=== PATIENT | female | born 1960 | race African-American/Black ===

== ENCOUNTER → 2016-07-17 | Outpatient (CLI) | payer OTHER ==
[~2016-07-17] MED LIST: ALDACTONE25 MG PO; ALDACTONE50 MG PO; ALUPENT IH; ASPIRIN PO; ASPIRIN325 PO; CARDIZEM CD240 MG PO; CATAPRES0.2 MG PO; CLONIDINE; CYCLOBENZAPRINE10 MG PO; K-DUR 20 MEQ T20 MEQ PO; KAPVAY0.1 MG PO; LEVOTHROID88 MCG PO; LISINOPRIL40 MG PO; NOLVADEX10 MG PO; NORCO 5-325 TA1 EACH PO; NORFLEX100 MG PO; NORVASC10 MG PO; PERCOCET 5-3251 EACH PO; POTASSIUM20 PO; PREDNISONE 10 M10 M1 PO; SPIRONOLACTONE25 M1 GT; SYNTHROID88 MCG PO; TAMOXIFEN PO; TEKTURNA300 MG PO; TRANDATE 200 M200 M1 GT; TRANDATE 200 M200 M1 OR; TRANDATE 200 M200 MG PO; UNICOMPLEX M TA1 TA1; [UNRECOGNIZED DRUG - OTHER]; [UNRECOGNIZED DRUG - OTHER] IH; [UNRECOGNIZED DRUG - REMARK]
== END ==
LOC: MRI 09:44
DX: M48.06 Spinal stenosis, lumbar region (principal); M25.78 Osteophyte, vertebrae

== ENCOUNTER → 2016-09-25 | Outpatient (CLI) | payer OTHER ==
[~2016-09-25] VITALS: Ht 160 cm; Wt 112.0 kg
[~2016-09-25] MED LIST changes: +CLONIDINE0.1 PO; +LEVOTHYROXINE300 MCG PO; +LIPITOR 20 MG T20 M1 PO
--- NOTE | ~2016-09-25 | HPC ---
[facility] [address] [place] [address] PAIN MANAGEMENT CONSULTATION Name: LILO FUCHS [facility] #: [facility] [id number] Admission: 09/25/16 Attend Phys: Tom Patino DO Discharge: Date of : 56 Report #: [id number] THIS REPORT FOR: //name// CC: Tom Cruz DATE OF SERVICE: 09/25/2016 CHIEF COMPLAINT: Low back pain, left lower extremity pain with suspected paresthesias. HISTORY OF PRESENT ILLNESS: As you know, the patient is a 55-year-old female who has had longstanding low back pain, left lower extremity pain that began in 2010. The patient apparently has undergone 2 different lumbar fusion surgeries with Dr. Branch, the first in 2010, a repeated fusion in 2012. She indicates no injury, no trauma to her low back or lower extremities that may have led to recurrence of symptoms. She has been referred from her primary care physician to [facility] where she saw nurse practitioner, Karli Deras. At that time, it was determined that her symptoms may require surgical options, but she should seek more conservative therapy in the form of epidural injections under fluoroscopic guidance to address low back and left lower extremity paresthesias. The patient has subsequently been referred to our clinic to discuss options for treatment. The patient today indicates pain is periodic, describes the pain as burning, aching and throbbing, places current pain score at 7/10, daily average at 7/10, worst the pain has been is 10/10. The patient states that standing for any length of time or lying down exacerbates symptoms, getting up and walking, repositioning seems to improve pain. She has been referred to our service to discuss options for treatment for suspected lumbar radiculopathy. PAST MEDICAL HISTORY: 1. Hypertension. 2. Dyslipidemia. 3. Hypothyroidism. 4. Chronic low back pain. 5. Chronic kidney issues. 6. Osteoarthritis. 7. History of breast cancer. 8. Diabetes mellitus. PAST SURGICAL HISTORY: 1. Back surgery in 2010, repeated 2012. 2. Right knee replacement. 3. Knee revision. 4. Left knee replacement. [facility] [address] [place] [address] PAIN MANAGEMENT CONSULTATION Name: KATHIA MARINELLILILO A Room #: REG [facility].#: [id number] Admission: 09/25/16 Attend Phys: Tom Patino DO Discharge: Date of : 56 Report #: [id number] 5. Repeated back surgery. SOCIAL HISTORY: The patient continues to smoke half pack tobacco per day, has done so for greater than 20 years. Denies IV or illicit drug use. Admits to one alcoholic beverage per week. She has been on disability since 2009. She is not receiving workmen's compensation. She is not in litigation in regards to pain. She is not accompanied at today's visit. REVIEW OF SYSTEMS: Positive for weight gain, fatigue and weakness, wearing corrective eyewear, chronic cough, asthma, wheezing, numbness and tingling sensations, thyroid disease, diabetes mellitus type 2, all other review of systems negative per 12-point review of systems other than those listed in history of present illness. Pain impact score 33/70 indicating moderate interference of daily activities secondary to pain. ALLERGIES: SEAFOOD. CURRENT MEDICATIONS: Spironolactone 50 mg per day, lisinopril 40 mg per day, labetalol 200 mg twice a day, diltiazem 240 mg once a day, levothyroxine 300 mcg per day, clonidine 0.1 mg twice a day, potassium 20 mEq p.o. every day, atorvastatin 20 mg per day. IMAGING: MRI lumbar spine obtained on 07/17/2016 shows moderate foraminal narrowing at L2-L3 with effacement of the L2 nerve roots. Mild to moderate left lateral recess stenosis L2-L3 with endplate marginal osteophyte complex causing effacement of the L3 nerve roots. PHYSICAL EXAMINATION: VITAL SIGNS: Blood pressure 137/95, pulse is 73, respiratory rate 16, unlabored. The patient is 97% on room air, height 5 feet 3 inches tall, weight 247 pounds, BMI calculated 43.8. GENERAL: Well developed, well nourished, well hydrated, morbidly obese 55-year-old female appearing stated age. Pain is rated at 7/10 HEENT: Normocephalic, atraumatic. Pupils equal, round, reactive to light. Extraocular muscles are intact. Sclerae nonicteric without injection. The patient deemed a good historian. LUNGS: Clear, no wheeze, rhonchi or rales. CARDIOVASCULAR: Regular. No appreciable gallop or rub. ABDOMEN: Soft, obese, normal active bowel sounds. EXTREMITIES: Show no clubbing, no cyanosis, no edema. MUSCULOSKELETAL: Seated straight leg raising is negative. Supine straight leg raising positive. Fabere's test negative. Modified Gaenslen's positive for axial low back pain. Ankle clonus negative. Babinski is negative. She is intact to light touch from L1 through S2 dermatomes, though there is decreased [address] [address] PAIN MANAGEMENT CONSULTATION Name: LILO FUCHS Room #: REG [facility] Amy#: [id number] Admission: 09/25/16 Attend Phys: Tom Patino DO Discharge: Date of : 56 Report #: [id number] tactile sensation in a stocking distribution in lower extremities bilaterally. Gait is antalgic. She is not utilizing any assistive devices. Muscle bulk and tone equal and symmetrical. There is no ankle clonus, no Babinskis. ASSESSMENT: 1. Symptomatic lumbar radiculopathy. 2. Lumbosacral spondylosis with radiculopathy. 3. Foraminal stenosis of lumbar spine. 4. Chronic intractable pain. PLAN: 1. The patient has been referred to our service by her nurse practitioner, Karli Deras for evaluation for low back pain and lower extremity pain. It does appear the patient is suffering from lumbar radiculopathy and this does correlate to the findings in the MRI, which indicates changes at L2-L3 causing compression of the L2 and L3 nerve roots bilaterally. Symptoms patient is experiencing does appear to relate to L3 dermatomal distribution. We discussed with the patient the options for treatment. These options for treatment include physical therapy, stretching exercises, core strengthening and a concerted effort at weight loss. The patient, as you are aware, has a BMI of 43.8, which would indicate severe obesity. Weight loss would improve the patient's symptoms significantly would also decrease the pain she has been experiencing axial back due to facet arthropathy changes. We discussed with the patient medication management with neuropathic pain medications, specifically. This in conjunction with the nonsteroidal anti-inflammatory could be beneficial. We discussed the requested epidural injections to address lumbar radicular symptoms radiating from the L2-L3 level. We discussed spinal cord stimulator therapy and surgical options. After reviewing the risks and benefits of all proposed treatment options, the patient chose to take some time and consider these options more fully. 2. We have given the patient information about the spinal cord stimulator. This she can review on her own time. We did give the patient the name of the psychiatrist in the area that do the testing for the spinal cord stimulator if she wishes to move forward with this type of device. We have recommended in this patient's case, the Nevro stimulator. She was given information both in digital and written form to review at her own convenience. If she does choose to move forward with this device, she is to contact our clinic so that we will be able to provide referrals to the psychiatric evaluation initially. If she is proven to be an appropriate candidate from a psychological standpoint, we would then move forward with planning to trial implantation. The patient and I did discuss the possibility of undergoing the requested epidural injection. She is going to consider this option as well. At present, she is more considering surgical options, but we have provided her information on treatment options may be more conservative and may be more amenable to treatment for the short term. [address] [address] PAIN MANAGEMENT CONSULTATION Name: LILO FUCHS Room #: REG [facility] Reyes#: [id number] Admission: 09/25/16 Attend Phys: Tom Patino DO Discharge: Date of : 56 Report #: [id number] 3. No medication changes were made at today's visit. Recommend the patient continue medication therapy as previously prescribed. 4. We wish to thank nurse practitioner, Karli Deras for the referral of this patient to our clinic. We will keep you apprised of any treatment options the patient does choose to move forward with and the efficacy of those options. Again, we wish to thank you for the opportunity to see the patient in consultation. cc: Karli Deras RN By: 0801 1125 Tom Patino DO /nt
[2016-09-25 10:55] VITALS: BP 137/95
== END | disposition home or self-care (01) ==
LOC: PAIN 06:56
DX: M54.16 Radiculopathy, lumbar region (principal); M47.27 Other spondylosis with radiculopathy, lumbosacral region; M48.06 Spinal stenosis, lumbar region; G89.29 Other chronic pain; J45.909 Unspecified asthma, uncomplicated; E07.9 Disorder of thyroid, unspecified; E11.9 Type 2 diabetes mellitus without complications; F17.210 Nicotine dependence, cigarettes, uncomplicated; M19.90 Unspecified osteoarthritis, unspecified site; Z79.4 Long term (current) use of insulin; Z98.890 Other specified postprocedural states; Z85.3 Personal history of malignant neoplasm of breast

== ENCOUNTER 2016-12-29 10:00 | Emergency (ER) | payer OTHER ==
[~2016-12-29] VITALS: Ht 160 cm; Wt 108.9 kg
[2016-12-29 10:19] LABS: URINE BILIRUBIN NEGATIVE (Negative); URINE BLOOD NEGATIVE (Negative); URINE COLOR YELLOW; URINE GLUCOSE-RANDOM* NEGATIVE (Negative); URINE KETONES NEGATIVE (Negative); URINE NITRITE NEGATIVE (Negative); URINE PROTEIN (DIPSTICK) TRACE (Negative); URINE SPECIFIC GRAVITY 1.025 (1.003-1.035); URINE UROBILINOGEN 0.2 E.U./dl (0.2-1.0)
[2016-12-29 10:24] LABS: ABSOLUTE NEUTROPHILS 7.7 thou/uL (1.4-8.2); BASOPHILS 0.3 % (0.0-2.0); EOSINOPHILS 1.4 % (0.0-3.0); HEMATOCRIT 43.1 % (37.0-47.0); HEMOGLOBIN 14.6 gm/dL (12.0-15.0); MANUAL DIFF NO; MCH 31.1 pg (26.0-34.0); MCHC 33.9 g/dL (28.0-37.0); MCV 91.6 fL (80.0-100.0); MONOCYTES 7.4 % (1.0-8.0); PLATELET COUNT 202 thou/uL (150-400); POLYS 76.9 % (36.0-66.0); RBC 4.71 mil/uL (4.20-5.00); RDW 14.7 % (10.5-14.5)
[2016-12-29 10:31] LABS: CALCIUM 9.5 mg/dL (8.5-10.1); CREATININE 1.2 mg/dL (0.6-1.0); POTASSIUM 4.4 mmol/L (3.5-5.1)
[2016-12-29 10:37] LABS: ALBUMIN 3.7 g/dL (3.4-5.0); TOTAL BILIRUBIN 0.5 mg/dL (<0.1-1.0); TOTAL PROTEIN 7.8 g/dL (6.4-8.2)
[2016-12-29] MEDS ORDERED: FLAGYL500 MG PO (12:44)
[2016-12-29] MEDS ORDERED: ONDANSETRON HCL4 M2 PO (12:44)
[2016-12-29] MEDS ORDERED: CIPROFLOXACIN500 M1 PO (12:44)
[2016-12-29] MEDS ORDERED: NORCO 5-325 TA1 EACH PO (12:49)
== END 2016-12-29 12:58 | disposition home or self-care (01) ==
LOC: ER 10:00
PROVIDERS: Physician Assistant
DX: K50.00 Crohn's disease of small intestine without complications (principal); R19.7 Diarrhea, unspecified; F17.210 Nicotine dependence, cigarettes, uncomplicated; Z91.013 Allergy to seafood; Z98.890 Other specified postprocedural states

== ENCOUNTER 2018-02-27 22:31 | Emergency (ER) | payer OTHER ==
[~2018-02-27] VITALS: Ht 160 cm; Wt 107.0 kg
[~2018-02-27 22:31] MED LIST changes: +CIPROFLOXACIN500 M1 PO; +FLAGYL500 MG PO; +ONDANSETRON HCL4 M2 PO
[2018-02-27 22:51] LABS: URINE BILIRUBIN NEGATIVE (Negative); URINE BLOOD NEGATIVE (Negative); URINE CLARITY CLEAR; URINE COLOR YELLOW; URINE GLUCOSE-RANDOM* NEGATIVE (Negative); URINE KETONES NEGATIVE (Negative); URINE LEUKOCYTES-REFLEX NEGATIVE (Negative); URINE NITRITE-REFLEX NEGATIVE (Negative); URINE PROTEIN (DIPSTICK) NEGATIVE (Negative); URINE SPECIFIC GRAVITY >= 1.030 (1.005-1.035); URINE UROBILINOGEN 0.2 E.U./dl (0.2-1.0)
[2018-02-27] MEDS ORDERED: CARDIZEM CD240 MG PO (23:15)
[2018-02-27 23:38] LABS: ABSOLUTE NEUTROPHILS 3.7 thou/uL (1.4-8.2); BASOPHILS 0.7 % (0.0-2.0); EOSINOPHILS 2.3 % (0.0-3.0); HEMOGLOBIN 14.3 gm/dL (12.0-15.0); LYMPHOCYTES 37.2 % (24.0-44.0); MCH 32.2 pg (26.0-34.0); MCHC 34.1 g/dL (28.0-37.0); MCV 94.3 fL (80.0-100.0); MONOCYTES 6.9 % (1.0-8.0); PLATELET COUNT 168 thou/uL (150-400); POLYS 52.9 % (36.0-66.0); RBC 4.45 mil/uL (4.20-5.00); RDW 14.7 % (10.5-14.5); WBC 7.1 thou/uL (4.0-11.0)
[2018-02-27 23:52] LABS: CALCIUM 9.9 mg/dL (8.5-10.1); CREATININE 1.7 mg/dL (0.6-1.0); POTASSIUM 4.2 mmol/L (3.5-5.1)
[2018-02-27 23:53] LABS: ALBUMIN 3.4 g/dL (3.4-5.0); TOTAL BILIRUBIN 0.2 mg/dL (<0.1-1.0); TOTAL PROTEIN 7.6 g/dL (6.4-8.2)
[2018-02-28] MEDS ORDERED: ZOFRAN ODT4 MG PO (01:40)
[2018-02-28 01:52] VITALS: BP 131/91
== END 2018-02-28 01:54 | disposition home or self-care (01) ==
LOC: ER 22:31
PROVIDERS: Emergency Medicine
DX: R10.11 Right upper quadrant pain (principal); R11.0 Nausea; K59.00 Constipation, unspecified; G89.29 Other chronic pain; I10 Essential (primary) hypertension; F17.210 Nicotine dependence, cigarettes, uncomplicated; Z90.49 Acquired absence of other specified parts of digestive tract; Z90.710 Acquired absence of both cervix and uterus; Z85.3 Personal history of malignant neoplasm of breast; Z91.013 Allergy to seafood; Z96.653 Presence of artificial knee joint, bilateral

== ENCOUNTER 2018-04-05 15:11 | Emergency (ER) | payer OTHER ==
[~2018-04-05] VITALS: Ht 160 cm; Wt 99.8 kg
--- NOTE | ~2018-04-05 | EKG ---
[place] [address] [facility] [place] [address] ELECTROCARDIOGRAM REPORT Name: LILO FUCHS Room #: DEP [facility]#: [id number] Admission: 04/05/18 Attend Phys: Discharge: 04/05/18 Date of : 56 Report #: [id number] THIS REPORT FOR: //name// [facility] ED Test Date: 2018-04-05 Test Time: 15:19:12 Pat Name: LILO MARINELLI Department: Room: Gender: F Chief Medical Physicist: : 1960 Requested By: Russ Rodriguez Order Number: [id number] MD: Nicko Tavares Measurements Intervals [place] Rate: 66 P: 71 IA: 207 QRS: -24 QRSD: 116 T: 10 QT: 418 QTc: 438 Interpretive Statements Sinus rhythm Borderline prolonged IA interval Nonspecific T wave abnormality Compared to ECG 02/02/2014 01:16:36 T wave abnormality is less pronounced Electronically Signed On 04-06-2018 8:50:24 SIGNALMAN by Nicko Tavares [email or web address] <ELECTRONICALLY SIGNED> By: Nicko Tavares MD, [facility] 04/06/18 0850 1519 1519 Nicko Tavares MD, [facility] /EPI
[~2018-04-05 15:11] MED LIST changes: +ZOFRAN ODT4 MG PO
[2018-04-05 15:34] LABS: ABSOLUTE NEUTROPHILS 3.3 thou/uL (1.4-8.2); EOSINOPHILS 2.7 % (0.0-3.0); HEMATOCRIT 41.6 % (37.0-47.0); HEMOGLOBIN 14.2 gm/dL (12.0-15.0); MCH 32.7 pg (26.0-34.0); MCHC 34.2 g/dL (28.0-37.0); MCV 95.6 fL (80.0-100.0); MONOCYTES 8.6 % (1.0-8.0); PLATELET COUNT 193 thou/uL (150-400); POLYS 54.7 % (36.0-66.0); RBC 4.35 mil/uL (4.20-5.00); RDW 14.7 % (10.5-14.5); WBC 6.1 thou/uL (4.0-11.0)
[2018-04-05 15:51] LABS: ANION GAP 7 mmol/L (7-16); BUN 23 mg/dL (7-18); CALCIUM 9.9 mg/dL (8.5-10.1); CHLORIDE 103 mmol/L (98-107); CO2 29 mmol/L (21-32); CREATININE 1.2 mg/dL (0.6-1.0); GLUCOSE 102 mg/dL (74-106); POTASSIUM 4.7 mmol/L (3.5-5.1); SODIUM 139 mmol/L (136-145)
[2018-04-05 16:00] LABS: TROPONIN-I <0.06 ng/mL (<0.06)
[2018-04-05] MEDS ORDERED: LIPITOR10 MG PO (17:30)
[2018-04-05] MEDS ORDERED: ALDACTONE100 MG PO (17:31)
[2018-04-05] MEDS ORDERED: PEPCID20 MG PO (17:32)
[2018-04-05 18:31] VITALS: BP 120/82
== END 2018-04-05 18:34 | disposition home or self-care (01) ==
LOC: ER 15:11
PROVIDERS: Physician Assistant
DX: R07.89 Other chest pain (principal); F17.210 Nicotine dependence, cigarettes, uncomplicated; I10 Essential (primary) hypertension; I48.91 Unspecified atrial fibrillation; Z91.013 Allergy to seafood; Z96.653 Presence of artificial knee joint, bilateral; Z85.3 Personal history of malignant neoplasm of breast; Z90.10 Acquired absence of unspecified breast and nipple; Z90.49 Acquired absence of other specified parts of digestive tract; Z90.710 Acquired absence of both cervix and uterus

== ENCOUNTER → 2018-10-02 | Outpatient (CLI) | payer OTHER ==
[2018-10-02] VITALS (25 sets, daily range): BP systolic 87–149; BP diastolic 37–78
[~2018-10-02] VITALS: Ht 157.5 cm; Wt 106.6 kg
[~2018-10-02] MED LIST changes: +ALDACTONE100 MG PO; +LIPITOR10 MG PO; +METFORMIN HCL500 MG PO; +PEPCID20 MG PO
[2018-10-02 09:50] LABS: HEMATOCRIT 38.7 % (37.0-47.0); HEMOGLOBIN 12.9 gm/dL (12.0-15.0); MCH 32.7 pg (26.0-34.0); MCHC 33.4 g/dL (28.0-37.0); MCV 97.7 fL (80.0-100.0); RBC 3.96 mil/uL (4.20-5.00); RDW 14.2 % (10.5-14.5); WBC 4.9 thou/uL (4.0-11.0)
[2018-10-02 10:02] LABS: INR 1.1; PROTIME 11.6 Seconds (9.3-11.4)
--- NOTE | 2018-10-05 17:05 | PATH ---
[facility] [address] [place] [address] PATHOLOGY RPT PROCEDURE Name: KATHIA MARINELLILILO ANN Room #: REG [facility] Ale.Harini.#: [id number] ������������������ Admission: 10/02/18 ������������������ Date of : 56 Discharge: Report #: [id number] Path Case #: [id number] [facility] Accession Number: [id number] . 01 Material submitted: . lung - LEFT LOWER LOBE LUNG NODULE. Modifiers: left, lower . 01 Clinical history: . Left lower lobe lung nodule . 02 Diagnosis: Lung, left lower lobe lung nodule, needle core biopsy: - Chondroid and myxoid matrix adjacent to benign alveolated lung parenchyma. See comment. - Scant fragments of reactive skeletal muscle present. LBQ/10/05/2018 . 02 Comment: Examination shows chondroid and myxoid matrix amidst lung parenchyma. Mitotic figures, or necrosis as well as nuclear atypia are not identified. Findings may be suggestive of a pulmonary hamartoma, or a spindle cell soft tissue neoplasm with chondromyxoid matrix. Epithelial neoplasm or carcinoma is not identified within the current sample. Clinical correlation is required. . Dr. Jennifer Cunningham has seen a outside sales account representative slide of this case and concurs with my diagnosis. (IUV/db; 10/05/2018) . 02 Electronically signed: . Amrita More MD, Pathologist NPI- [id number] . 01 Gross description: . Received in formalin labeled "Lilo Fuchs, LL lobe," and additionally labeled on the requisition as "lung nodule," are multiple fragments of needle cores of horne soft tissue measuring 0.3 x 0.2 x 0.1 cm in aggregate dimensions. The specimen is filtered and entirely submitted in cassette A1. (TSD; 10/02/2018) TOB/TOB . 02 Pathologist provided ICD-10: D14.30, R91.1 . 02 CPT . [address] [address] PATHOLOGY RPT PROCEDURE Name: LILO FUCHS SURAJ Room #: REG [facility] Otto.#: [id number] ������������������ Admission: 10/02/18 ������������������ Date of : 56 Discharge: Report #: [id number] Path Case #: [id number] Specimen Comment: A courtesy copy of this report has been sent to Specimen Comment: [phone], . Specimen Comment: Report sent to and Performed at: [address], [place], [place] [id number] MD Shaun Galan MD Phone: [phone] Performed at: [address] [id number] MD Amrita More MD Phone: [phone]
== END | disposition home or self-care (01) ==
LOC: CAT 09:02
PROVIDERS: Radiology Diagnostic Radiology
DX: D14.32 Benign neoplasm of left bronchus and lung (principal); I10 Essential (primary) hypertension; E78.5 Hyperlipidemia, unspecified; F17.210 Nicotine dependence, cigarettes, uncomplicated; Z98.890 Other specified postprocedural states; Z85.3 Personal history of malignant neoplasm of breast; Z79.899 Other long term (current) drug therapy

== ENCOUNTER → 2018-12-02 | Outpatient (CLI) | payer OTHER | LOC: CAT 10:48 | DX: R92.8 Other abnormal and inconclusive findings on diagnostic imaging of breast (principal); R91.1 Solitary pulmonary nodule; Z85.3 Personal history of malignant neoplasm of breast ==

== ENCOUNTER 2019-04-22 21:26 | Emergency (ER) | payer OTHER ==
[~2019-04-22] VITALS: Ht 160 cm; Wt 98.4 kg
[2019-04-22 23:48] LABS: ABSOLUTE NEUTROPHILS 3.8 thou/uL (1.4-8.2); BASOPHILS 0.8 % (0.0-2.0); EOSINOPHILS 1.5 % (0.0-3.0); HEMATOCRIT 40.6 % (37.0-47.0); HEMOGLOBIN 13.4 gm/dL (12.0-15.0); LYMPHOCYTES 26.8 % (24.0-44.0); MCH 31.2 pg (26.0-34.0); MCV 94.6 fL (80.0-100.0); MONOCYTES 7.3 % (1.0-8.0); PLATELET COUNT 171 thou/uL (150-400); POLYS 63.6 % (36.0-66.0); RBC 4.29 mil/uL (4.20-5.00); RDW 15.4 % (10.5-14.5); WBC 5.9 thou/uL (4.0-11.0)
[2019-04-22 23:57] LABS: ANION GAP 6 mmol/L (7-16); BUN 22 mg/dL (7-18); CALCIUM 8.8 mg/dL (8.5-10.1); CHLORIDE 105 mmol/L (98-107); CO2 28 mmol/L (21-32); CREATININE 1.1 mg/dL (0.6-1.0); GLUCOSE 103 mg/dL (74-106); POTASSIUM 3.5 mmol/L (3.5-5.1); SODIUM 139 mmol/L (136-145)
[2019-04-23 00:03] LABS: ALBUMIN 3.3 g/dL (3.4-5.0); DIRECT BILIRUBIN < 0.1 mg/dL (<0.1-0.2); SGOT 17 U/L (15-37); SGPT 29 U/L (30-65); TOTAL BILIRUBIN 0.3 mg/dL (<0.1-1.0); TOTAL PROTEIN 6.8 g/dL (6.4-8.2)
[2019-04-23 00:29] LABS: URINE BILIRUBIN NEGATIVE (Negative); URINE BLOOD NEGATIVE (Negative); URINE CLARITY CLEAR; URINE COLOR YELLOW; URINE GLUCOSE-RANDOM* NEGATIVE (Negative); URINE KETONES NEGATIVE (Negative); URINE LEUKOCYTES-REFLEX NEGATIVE (Negative); URINE NITRITE-REFLEX NEGATIVE (Negative); URINE PROTEIN (DIPSTICK) NEGATIVE (Negative); URINE SPECIFIC GRAVITY 1.015 (1.005-1.035)
[2019-04-23] MEDS ORDERED: MOBIC15 MG PO (00:57)
[2019-04-23 01:15] VITALS: BP 175/121
== END 2019-04-23 01:16 | disposition home or self-care (01) ==
LOC: ER 21:26
PROVIDERS: Emergency Medicine
DX: R10.9 Unspecified abdominal pain (principal); I10 Essential (primary) hypertension; F17.210 Nicotine dependence, cigarettes, uncomplicated; Z85.3 Personal history of malignant neoplasm of breast; Z90.10 Acquired absence of unspecified breast and nipple; Z91.013 Allergy to seafood

== ENCOUNTER → 2019-04-27 | Outpatient (CLI) | payer OTHER ==
[~2019-04-27] MED LIST changes: +MOBIC15 MG PO
== END ==
LOC: SJCVC 10:54
DX: I21.29 ST elevation (STEMI) myocardial infarction involving other sites (principal); R94.31 Abnormal electrocardiogram [ECG] [EKG]; I48.0 Paroxysmal atrial fibrillation; I10 Essential (primary) hypertension; R60.9 Edema, unspecified; J45.909 Unspecified asthma, uncomplicated; E11.9 Type 2 diabetes mellitus without complications; E78.5 Hyperlipidemia, unspecified; F17.210 Nicotine dependence, cigarettes, uncomplicated; Z79.899 Other long term (current) drug therapy

== ENCOUNTER → 2019-04-29 | Outpatient (CLI) | payer OTHER | LOC: RAD 14:26 | DX: M48.02 Spinal stenosis, cervical region (principal); M25.78 Osteophyte, vertebrae; M43.12 Spondylolisthesis, cervical region; M50.323 Other cervical disc degeneration at C6-C7 level ==

== ENCOUNTER → 2019-05-03 | Outpatient (CLI) | payer OTHER | LOC: SJCVCIMAG 08:51 | DX: N32.89 Other specified disorders of bladder (principal); I10 Essential (primary) hypertension; E78.00 Pure hypercholesterolemia, unspecified; I48.91 Unspecified atrial fibrillation; J45.909 Unspecified asthma, uncomplicated; E11.9 Type 2 diabetes mellitus without complications; E78.5 Hyperlipidemia, unspecified; F17.210 Nicotine dependence, cigarettes, uncomplicated; Z85.3 Personal history of malignant neoplasm of breast ==

== ENCOUNTER → 2019-05-17 | Outpatient (CLI) | payer OTHER | LOC: MRI 09:52 | DX: M47.22 Other spondylosis with radiculopathy, cervical region (principal); M48.02 Spinal stenosis, cervical region; M50.121 Cervical disc disorder at C4-C5 level with radiculopathy; M12.88 Other specific arthropathies, not elsewhere classified, other specified site; M25.78 Osteophyte, vertebrae; M50.10 Cervical disc disorder with radiculopathy, unspecified cervical region ==

== ENCOUNTER → 2019-06-07 | Outpatient (CLI) | payer OTHER | LOC: RAD 14:50 | DX: R06.00 Dyspnea, unspecified (principal); Q85.9 Phakomatosis, unspecified ==

== ENCOUNTER → 2020-01-03 | Outpatient (CLI) | payer OTHER | LOC: RAD 14:41 | PROVIDERS: ATTEND Neuromusculoskeletal Medicine & OMM | DX: M43.27 Fusion of spine, lumbosacral region (principal); M43.08 Spondylolysis, sacral and sacrococcygeal region; M25.78 Osteophyte, vertebrae; M54.12 Radiculopathy, cervical region ==

== ENCOUNTER → 2020-01-11 | Outpatient (CLI) | payer OTHER ==
[~2020-01-11] MED LIST changes: +PROTONIX40 M2 PO; +UNICOMPLEX M TA1 TA1 PO
== END ==
LOC: RAD 11:54
PROVIDERS: ATTEND Internal Medicine Pulmonary Disease
DX: R06.02 Shortness of breath (principal); M41.86 Other forms of scoliosis, lumbar region

== ENCOUNTER → 2020-01-12 | Outpatient (CLI) | payer OTHER ==
[~2020-01-12] VITALS: Ht 160 cm; Wt 103.9 kg
--- NOTE | ~2020-01-12 | HPC ---
[facility] [address] [place] [address] PAIN MANAGEMENT CONSULTATION Name: LILO FUCHS Room #: REG FRANCES AguileraRoshanHariniRoshan#: [id number] Admission: 01/12/20 Attend Phys: Tom Patino DO Discharge: Date of : 56 Report #: [id number] THIS REPORT FOR: cc: Declan Cruz,Tom Kaur DO ~ CC: Tom Cruz DATE OF SERVICE: 01/12/2020 REFERRING NURSE PRACTITIONER: MONTSERRAT Chadwick CHIEF COMPLAINT: Low back pain, bilateral hip and posterolateral thigh pain. HISTORY OF PRESENT ILLNESS: As you know, t patient is a very pleasant 59-year-old female who has had an extensive lumbar fusion to address chronic lumbar radiculopathy. The patient states she was doing fairly well when symptoms began to return. She sought evaluation through [facility] who referred the patient to our clinic to try epidural injection under fluoroscopic guidance to address low back pain, left lower extremity pain with paresthesias. Apparently, this has been present for about a year, but has progressively worsened. The patient has undergone 2 previous lumbar surgeries with fusions from Dr. Branch. She has been on hydrocodone, which she indicates is helpful for pain. Due to lack of improvement with conservative treatment options, the patient was subsequently referred to our clinic to discuss conservative treatment before looking toward surgical options. The patient indicates today pain is intermittent and periodic. She describes the pain as shooting, aching and numbness and tingling. Places current pain score 7/10, daily average is 7/10, worst pain has been is 7/10. The patient states pain is exacerbated with sitting for long periods of time or standing for any length of time. Pain tends to be improved with lying down and hydrocodone therapy. She has been referred to our service to discuss interventional treatments to address lumbar radiculopathy. PAST MEDICAL HISTORY: 1. Asthma. 2. Atrial fibrillation. 3. Chronic back pain. 4. History of breast cancer. 5. Chronic chest pain. 6. Diabetes mellitus type 2, borderline. 7. Thyroid disease. 8. Hyperlipidemia. [facility] [address] [place] [address] PAIN MANAGEMENT CONSULTATION Name: KATHIA LILO MARINELLI SURAJ Room #: REG [facility].#: [id number] Admission: 01/12/20 Attend Phys: Tom Patino DO Discharge: Date of : 56 Report #: [id number] 9. Hypertension. PAST SURGICAL HISTORY: 1. Lumbar fusion x 2. 2. Breast lumpectomy. 3. Cholecystectomy. 4. Hysterectomy. 5. Total knee arthroplasty with revision. SOCIAL HISTORY: The patient is not a reformed smoker. She is a chronic smoker, smoking half a pack of tobacco per day and has done so for over 20 years. Denies IV or illicit drug use. Admits to 1 alcohol beverage per day. She is on disability and has been so since 2009. She is not in litigation in regards to her symptoms. She is unaccompanied at today's visit. REVIEW OF SYSTEMS: Positive for fatigue and weakness, eye disease and wearing corrective eyewear, chronic cough, asthma, wheezing, numbness and tingling sensations, thyroid disease, non-insulin dependent diabetes. All other review of systems negative per 12-point review of systems other than those listed in history of present illness. Pain impact score of 33/70 indicating moderate interference of daily activities secondary to pain. ALLERGIES: SHELLFISH. CURRENT MEDICATIONS: Multivitamin 1 tab per day, pantoprazole 40 mg per day, metformin 500 mg b.i.d., spironolactone 100 mg per day, atorvastatin 10 mg per day, diltiazem 240 mg once a day, clonidine 0.1 mg b.i.d., levothyroxine 300 mcg per day, labetalol 200 mg twice a day. IMAGING: MRI lumbar spine obtained 12/17/2016 shows broad-based circumferential osteophyte complex and disk bulge with effect of the L3 nerve root on the left at L2-L3, there is decompression laminectomy throughout the remainder of the lumbar spine. No significant neural foraminal or central canal stenosis. PQRS: The patient has known arthritic changes of the lumbar spine. History of bilateral hips and knees. No rheumatoid arthritis. She is placing pain intensity is 7/10. She is not a fall risk, has not had a fall in last 3 months. She is not on blood thinners, but is treated for hypertension. She is not on chronic opioids, has a low opioid addiction potential based on our assessment tool. Pain impact 33/70 moderate interference of daily activities secondary to pain. PHYSICAL EXAMINATION: VITAL SIGNS: Blood pressure 144/99, pulse 56, respiratory rate 16 and [facility] [address] [place] [address] PAIN MANAGEMENT CONSULTATION Name: LILO FUCHS Room #: CROW Reyes#: [id number] Admission: 01/12/20 Attend Phys: Tom Patino DO Discharge: Date of : 56 Report #: [id number] unlabored. The patient is 97% on room air. Height 5 feet 3 inches tall, weight 229 pounds, BMI calculated 40.6. GENERAL: Well-developed, well-nourished, well-hydrated, class 3, morbidly obese female appearing her stated age. She is placing current pain score at 7/10. HEENT: Normocephalic, atraumatic. Pupils equal, round and reactive. Extraocular muscles are intact. NEUROLOGIC: Speech is fluent for patient. LUNGS: Clear, no wheezes or rhonchi. No appreciable rales. CARDIOVASCULAR: Regular. No appreciable gallop, no rub. ABDOMEN: Soft, obese. Bowel sounds are normal. EXTREMITIES: Show no clubbing, no cyanosis, no edema. MUSCULOSKELETAL: Lower extremity strength equal and symmetrical 5/5. She is intact to light touch from L1 through S2 dermatomes. Deep tendon reflexes are 2+/4 and symmetrical to patellar and Achilles. Ankle clonus negative. Babinski is negative. Seated straight leg raising negative. Supine straight leg raising positive on the left. Sukhi's test is negative. ASSESSMENT: 1. Symptomatic lumbar radiculopathy. 2. Displacement of lumbar intervertebral disk with radiculopathy. 3. Central canal stenosis of lumbar spine. 4. Lateral recess stenosis of lumbar spine. 5. Neural foraminal stenosis of lumbar spine. 6. Failed lumbar spine surgery. PLAN: 1. Based on today's physical exam and history the patient has provided, the description the patient uses in regards to pain as well as location of symptoms, likely source of the patient's symptoms is a lumbar radiculopathy. The patient and I had a very long discussion today about the findings of her MRI dated from 2016, which is the most recent imaging study we have. At that time, she was having impingement on the left L3 nerve root, consistent with the patient's left lower extremity and buttock symptoms. We discussed this with the patient today. After this discussion, we discussed the treatment options we have available for this type of issue. The following was discussed with the patient today. We discussed physical therapy, stretching exercises, core strengthening and a concerted effort of weight loss. We discussed medication management, suggestions to the primary care team in regards to dosing for neuropathic pain medications such as amitriptyline, nortriptyline, Cymbalta, Lyrica or gabapentin. We discussed epidural injections for which the patient was referred to our clinic. We also discussed spinal cord stimulator as a possible option of treatment. Ultimately, we discussed a decompressive laminectomy with fusion of the L3-L4 level to alleviate pressure upon the left L3 nerve root. After reviewing the risks and benefits of all proposed treatment options, the patient chose to begin with lumbar epidural injection under fluoroscopic guidance. [address] [address] PAIN MANAGEMENT CONSULTATION Name: KATHIA MARINELLILILO ANN Room #: REG [facility] Reyes#: [id number] Admission: 01/12/20 Attend Phys: Tom Patino DO Discharge: Date of : 56 Report #: [id number] 2. The patient was advised risks and benefits of a lumbar epidural injection. These risks include but are not necessarily limited to bleeding, bruising, infection, worsening pain, no relief of pain, also risk of temporary or permanent muscle weakness, temporary or permanent nerve damage, possible paralysis and . The patient states understood and wished to proceed. 3. No medication changes made at today's visit. The patient will continue current medical therapy as prior prescribed. 4. We will see the patient back in followup visit in 30 days. At that time, review the efficacy of today's epidural injection and determine next in the series of epidural injections would be recommended. PROCEDURE NOTE DESCRIPTION OF PROCEDURE: L3-L4 interlaminar epidural steroid injection under fluoroscopic guidance. This is the first procedure of the first series that the patient is undergoing. After obtaining written consent, the patient was taken back to the fluoroscopy suite, placed in a prone position with pillow under the abdomen to decrease lumbar lordosis. The skin overlying the lumbosacral area was then prepped and draped in aseptic fashion. The L3-L4 vertebral interspace was then identified by AP fluoroscopy. The skin and subcutaneous tissue overlying the target site of injection was anesthetized with 3 mL 1% lidocaine. A 20-gauge 4-1/2-inch Tuohy needle was then advanced under fluoroscopic guidance towards the epidural space using a left paramedian approach. The epidural space was identified using loss of resistance to air technique. After negative aspiration for heme or cerebrospinal fluid, a total of 1 mL of Omnipaque was injected. A lumbar epidurogram was confirmed using both AP and lateral fluoroscopy. After negative aspiration for heme or cerebrospinal fluid, 5 mL of solution containing 2 mL 40 mg per mL, 80 mg total of triamcinolone along with 3 mL of lidocaine 1% was injected in increments. Contrast spread was noted from posterior epidural space. The needle was then retracted approximately custodial and needle tract flushed with 1 mL of 1% lidocaine. Needle was then removed. There were no apparent sensory or motor deficits in the lower extremity following the procedure. A sterile bandage was placed over the injection site. The heart rate, pulse, oximetry and blood pressure were continuously monitored after the procedure. There were no apparent complications. The patient tolerated the procedure well and was carefully escorted to the recovery room in [address] [address] PAIN MANAGEMENT CONSULTATION Name: LILO FUCHS Room #: REG CLI AleDuran#: [id number] Admission: 01/12/20 Attend Phys: Tom Patino DO Discharge: Date of : 56 Report #: [id number] stable condition. There were no apparent complications. After meeting discharge criteria, the patient was then discharged home. By: [id number] Tom Patino DO /glen
[2020-01-12 14:47] VITALS: BP 144/99
--- NOTE | 2020-01-12 15:01 | NUR ---
Pain Clinic Assessment: 1. History of Osteoarthritis: KNEES DDD HANDS History of Rheumatoid Arthritis: Not Applicable 2. Height: 5 ft. 3 in. 160.0 cm. Weight: 229.0 lb. oz. 103.874 kg. Patient's BMI: 40.6 3. Vital Signs: BP: 144/99 Pulse: 56 Resp: 16 Temp: 02 Sat: 97 ECG Mon: 4. Pain Intensity: 7 5. Fall Risk: Dizziness: N Needs help standing or walking: N Fallen in the last 3 months: N Fall risk comments: 6. Patient on Blood Thinner: None 7. History of Hypertension: Y 8. Opioid Therapy greater than 6 weeks: N Opiate Contract Signed: 9. Risk Assessment Tool Provided: 0-LOW RISK 10. Functional Assessment Tool: 11. Recreational Drug Use: Never Drug Type: Tobacco Use: Never Smoker Tobacco Type: Amount or Packs/day: How Many Years: Alcohol Use: Yes Frequency: Weekly Quant: ONE DRINK PER WEEK
== END | disposition home or self-care (01) ==
LOC: PAIN 06:52
PROVIDERS: ATTEND Anesthesiology Pain Medicine
DX: M51.16 Intervertebral disc disorders with radiculopathy, lumbar region (principal); M48.061 Spinal stenosis, lumbar region without neurogenic claudication; M96.1 Postlaminectomy syndrome, not elsewhere classified; G89.29 Other chronic pain; I10 Essential (primary) hypertension; E11.9 Type 2 diabetes mellitus without complications; E78.5 Hyperlipidemia, unspecified; J45.909 Unspecified asthma, uncomplicated; I48.91 Unspecified atrial fibrillation; E07.9 Disorder of thyroid, unspecified; Z98.890 Other specified postprocedural states; Z79.899 Other long term (current) drug therapy; Z79.01 Long term (current) use of anticoagulants; Z90.710 Acquired absence of both cervix and uterus; Z90.49 Acquired absence of other specified parts of digestive tract; Z85.3 Personal history of malignant neoplasm of breast; Z96.653 Presence of artificial knee joint, bilateral

== ENCOUNTER → 2020-01-18 | Outpatient (CLI) | payer OTHER | LOC: CAT 11:11 | PROVIDERS: ATTEND Internal Medicine Pulmonary Disease | DX: Z12.2 Encounter for screening for malignant neoplasm of respiratory organs (principal); I70.0 Atherosclerosis of aorta; J84.10 Pulmonary fibrosis, unspecified; R91.8 Other nonspecific abnormal finding of lung field; K44.9 Diaphragmatic hernia without obstruction or gangrene; Z87.891 Personal history of nicotine dependence ==

== ENCOUNTER → 2020-03-14 | Outpatient (CLI) | payer OTHER | LOC: SJCVC 11:00 | PROVIDERS: ATTEND Internal Medicine Cardiovascular Disease | DX: R94.31 Abnormal electrocardiogram [ECG] [EKG] (principal); I45.10 Unspecified right bundle-branch block; I10 Essential (primary) hypertension; I48.0 Paroxysmal atrial fibrillation; R60.9 Edema, unspecified; E11.9 Type 2 diabetes mellitus without complications; E78.5 Hyperlipidemia, unspecified; F17.210 Nicotine dependence, cigarettes, uncomplicated; Z79.82 Long term (current) use of aspirin; Z79.899 Other long term (current) drug therapy ==

== ENCOUNTER → 2020-04-17 | Outpatient (CLI) | payer OTHER | LOC: SJCVCIMAG 04-03 08:05 | PROVIDERS: ATTEND Internal Medicine Cardiovascular Disease | DX: I07.1 Rheumatic tricuspid insufficiency (principal); R94.31 Abnormal electrocardiogram [ECG] [EKG]; R00.1 Bradycardia, unspecified; I10 Essential (primary) hypertension; E78.00 Pure hypercholesterolemia, unspecified; I48.0 Paroxysmal atrial fibrillation; E11.9 Type 2 diabetes mellitus without complications; E78.5 Hyperlipidemia, unspecified; E03.9 Hypothyroidism, unspecified; F17.210 Nicotine dependence, cigarettes, uncomplicated; Z79.82 Long term (current) use of aspirin; Z79.84 Long term (current) use of oral hypoglycemic drugs; Z79.899 Other long term (current) drug therapy ==

== ENCOUNTER → 2020-07-26 | Outpatient (CLI) | payer OTHER | LOC: SJCVC 15:09 | PROVIDERS: ATTEND Internal Medicine Cardiovascular Disease | DX: R94.31 Abnormal electrocardiogram [ECG] [EKG] (principal); I45.10 Unspecified right bundle-branch block; R00.1 Bradycardia, unspecified; R00.2 Palpitations; I10 Essential (primary) hypertension; E78.00 Pure hypercholesterolemia, unspecified; J45.909 Unspecified asthma, uncomplicated; E11.9 Type 2 diabetes mellitus without complications; E03.9 Hypothyroidism, unspecified; F17.210 Nicotine dependence, cigarettes, uncomplicated; Z90.49 Acquired absence of other specified parts of digestive tract; Z98.890 Other specified postprocedural states; Z79.82 Long term (current) use of aspirin; Z79.899 Other long term (current) drug therapy; Z82.49 Family history of ischemic heart disease and other diseases of the circulatory system ==

== ENCOUNTER → 2020-07-31 | Outpatient (CLI) | payer OTHER | LOC: SJCVCIMAG 09:55 | PROVIDERS: ATTEND Internal Medicine Cardiovascular Disease | DX: I65.23 Occlusion and stenosis of bilateral carotid arteries (principal); H53.9 Unspecified visual disturbance; J45.909 Unspecified asthma, uncomplicated; C50.919 Malignant neoplasm of unspecified site of unspecified female breast; E11.9 Type 2 diabetes mellitus without complications; E07.9 Disorder of thyroid, unspecified; E78.5 Hyperlipidemia, unspecified; I10 Essential (primary) hypertension; Z91.013 Allergy to seafood; Z72.89 Other problems related to lifestyle ==

== ENCOUNTER → 2020-08-29 | Outpatient (CLI) | payer OTHER | LOC: ULTRA 10:50 | PROVIDERS: ATTEND Neuromusculoskeletal Medicine & OMM | DX: R22.42 Localized swelling, mass and lump, left lower limb (principal) ==

== ENCOUNTER → 2021-01-24 | Outpatient (CLI) | payer OTHER | LOC: CAT 10:18 | PROVIDERS: ATTEND Internal Medicine Pulmonary Disease | DX: Z12.2 Encounter for screening for malignant neoplasm of respiratory organs (principal); J43.9 Emphysema, unspecified; R91.1 Solitary pulmonary nodule; Z87.891 Personal history of nicotine dependence ==

== ENCOUNTER → 2021-01-26 | Outpatient (CLI) | payer OTHER | LOC: SJCVCIMAG 08:04 | PROVIDERS: ATTEND Internal Medicine Cardiovascular Disease | DX: I08.3 Combined rheumatic disorders of mitral, aortic and tricuspid valves (principal); R94.31 Abnormal electrocardiogram [ECG] [EKG]; I10 Essential (primary) hypertension; I48.0 Paroxysmal atrial fibrillation; E78.00 Pure hypercholesterolemia, unspecified; R00.2 Palpitations; E03.9 Hypothyroidism, unspecified; E11.9 Type 2 diabetes mellitus without complications; E78.5 Hyperlipidemia, unspecified; F17.210 Nicotine dependence, cigarettes, uncomplicated; Z79.82 Long term (current) use of aspirin; Z79.84 Long term (current) use of oral hypoglycemic drugs; Z79.899 Other long term (current) drug therapy; Z91.013 Allergy to seafood; Z72.89 Other problems related to lifestyle ==

== ENCOUNTER → 2021-02-22 | Outpatient (CLI) | payer OTHER | END | disposition home or self-care (01) | LOC: MRI 09:29 | PROVIDERS: ATTEND Neuromusculoskeletal Medicine & OMM | DX: M48.061 Spinal stenosis, lumbar region without neurogenic claudication (principal); M47.816 Spondylosis without myelopathy or radiculopathy, lumbar region ==

== ENCOUNTER → 2021-03-20 | Outpatient (CLI) | payer OTHER ==
[~2021-03-20] VITALS: Ht 160 cm; Wt 92.3 kg
[2021-03-20 09:06] VITALS: BP 170/100; BP 170/110
--- NOTE | 2021-03-20 09:25 | NUR ---
Pain Clinic Assessment: 1. History of Osteoarthritis: KNEES DDD HANDS History of Rheumatoid Arthritis: Not Applicable 2. Height: 5 ft. 3 in. 160.0 cm. Weight: 203.4 lb. oz. 92.262 kg. Patient's BMI: 36.0 3. Vital Signs: BP: 170/110 Pulse: 79 Resp: 20 Temp: 02 Sat: 100 ECG Mon: 4. Pain Intensity: 7 5. Fall Risk: Dizziness: Y Needs help standing or walking: N Fallen in the last 3 months: N Fall risk comments: 6. Patient on Blood Thinner: None 7. History of Hypertension: Y 8. Opioid Therapy greater than 6 weeks: N Opiate Contract Signed: 9. Risk Assessment Tool Provided: 0-LOW RISK 10. Functional Assessment Tool: 11. Recreational Drug Use: Never Drug Type: Tobacco Use: Never Smoker Tobacco Type: Amount or Packs/day: How Many Years: Alcohol Use: Yes Frequency: Weekly Quant: ONE GLASS OF WINE WEEKLY
--- NOTE | 2021-03-20 14:34 | HPC ---
[address] [address] PAIN MANAGEMENT CONSULTATION Name: LILO FUCHS Room #: REG [facility].Harini.#: [id number] Admission: 03/20/21 Attend Phys: Tom Patino DO Discharge: Date of : 56 Report #: [id number] THIS REPORT FOR: cc: Declan Cruz,Declan Steele,Tom Alcocer DO ~ cc: Declan Cruz MD, Karli Deras, JANIE DATE OF SERVICE: 03/20/2021 REFERRING PHYSICIAN: Karli Deras NP CHIEF COMPLAINT: Low back pain, bilateral lower extremity pain, left greater than right. HISTORY OF PRESENT ILLNESS: As you know, the patient is a very pleasant 60-year-old female with longstanding history of chronic lumbar radiculopathy. The patient has undergone extensive instrumentation of the lumbar spine with fusion from L3 through S1. Even with this surgical intervention, her pain continues to be present. She has undergone an epidural injection last year with improvement in symptoms, but unfortunately symptoms recurred. She has recently undergone imaging of the lumbar spine, which shows changes that may prompt ultimately a surgical consultation, but the patient has been referred back to our clinic to try next in the series of epidural injections. The patient denies injury, trauma or any changes in medication management since our last visit. ALLERGIES: SEAFOOD. CURRENT MEDICATIONS: Multivitamin 1 tab per day, metformin 500 mg b.i.d., spironolactone 100 mg once a day, diltiazem 240 mg once a day, atorvastatin 10 mg per day, clonidine 0.1 mg b.i.d., levothyroxine 300 mcg per day, labetalol 200 mg b.i.d. SOCIAL HISTORY: The patient continues to smoke 1/2 pack tobacco per day, has done so for 21 years. Denies IV or illicit drug use. Admits to 1 alcohol beverage per week. She is on disability, and has been so since 2009. She is unaccompanied today. IMAGING: MRI lumbar spine obtained on 02/22/2021 showing postsurgical changes with instrumentation and fusion from L3 through S1. There is marked disk space narrowing noted throughout the lumbar region. There is scoliosis with postsurgical changes noted at the area above the fusion. There is neural foraminal stenosis at multiple levels. PQRS: The patient has known arthritic changes of the cervical spine, lumbar spine, bilateral hands and knees. No rheumatoid arthritis. She is placing pain intensity at 7/10. She is not a fall risk, has not had a fall in last [address] [address] PAIN MANAGEMENT CONSULTATION Name: LILO FUCHS SURAJ Room #: REG [facility].Harini.#: [id number] Admission: 03/20/21 Attend Phys: Tom Patino DO Discharge: Date of : 56 Report #: [id number] She is not on blood thinners, but is treated for hypertension. She is on no chronic opioids, takes no medication for pain. She is a low risk for opioid addiction based on assessment tool. Pain impact is 60/70, severe near complete interference of daily activities secondary to pain. PHYSICAL EXAMINATION: VITAL SIGNS: Blood pressure 170/110, pulse is 79, respiratory rate 20 and unlabored. The patient 100% on room air. Height 5 feet 3 inches tall, weight 203.4 pounds, BMI calculated 36.0. GENERAL: Well-developed, well-nourished, well-hydrated exogenously obese 60-year-old female appearing stated age, pain is rated today 7/10. HEENT: Normocephalic, atraumatic. Pupils equal, round and responsive. She is wearing a mask in compliance with COVID-19 regulations. EXTREMITIES: Show no clubbing, no cyanosis. No appreciable edema. MUSCULOSKELETAL: Lower extremity strength is symmetrical, 5/5. Well-healed large surgical scar of the lumbar area. Palpatory tenderness is noted over the paraspinal musculature. No spinous process tenderness. Seated straight leg raising negative. Supine straight leg raising is positive on the left. Sukhi's test is negative. Modified Gaenslen's positive for axial low back pain. Ankle clonus negative. Babinski's remains negative. ASSESSMENT: 1. Symptomatic lumbar radiculopathy. 2. Lumbosacral spondylosis with radiculopathy. 3. Foraminal stenosis of lumbar spine. 4. Failed lumbar surgery. 5. Chronic intractable pain. PLAN: 1. The patient returns today in followup visit to undergo next in the series of lumbar epidural injections under fluoroscopic guidance. The patient noted improvement in symptoms with the injection provided last year, but has had recurrence of symptoms, no inciting injury or trauma. She has returned back to our clinic to undergo a lumbar epidural injection under fluoroscopic guidance in hopes of improving pain. The patient has been advised risks and benefits of the procedure. These risks include, but are not necessarily limited to bleeding, bruising, infection, worsening pain, no relief of pain, also risk of temporary or permanent muscle weakness, temporary or permanent nerve damage, possible paralysis, post-dural puncture headache and . The patient states understood and wished to proceed. 2. No medication changes made at today's visit. The patient is recommended to continue current medical therapy. 3. We will see the patient back in followup visit on an as-needed basis. We are hopeful that today's epidural injection once again provide good and prolonged benefit. 4. The patient's blood pressure is noted to be elevated today 170/110. This is [facility] [address] [place] [address] PAIN MANAGEMENT CONSULTATION Name: LILO FUCHS Room #: REG [facility] Reyes#: [id number] Admission: 03/20/21 Attend Phys: Tom Patino DO Discharge: Date of : 56 Report #: [id number] not due to pain issues as her pulse rate is within normal range. I have recommended the patient follow up with her PCP as quickly as possible to make adjustments in her antihypertensive agents. Her blood pressure at our last visit was 144/99 and that was 01/12/2020. PROCEDURE NOTE DESCRIPTION OF PROCEDURE: L2-3 lumbar epidural steroid injection under fluoroscopic guidance. After obtaining written consent, the patient was taken back to fluoroscopy suite, placed in prone position, pillow under abdomen to decrease lumbar lordosis. Skin overlying lumbosacral area prepped and draped in aseptic fashion. The L2-3 interspace was identified by AP fluoroscopy. Skin and subcutaneous tissue overlying target site of injection anesthetized with 3 mL 1% lidocaine. A 20 gauge 3-1/2 inch Tuohy needle advanced under fluoroscopic guidance towards the epidural space using a midline approach. Epidural space identified using loss of resistance to air technique. After negative aspiration for heme or cerebrospinal fluid, 1 mL of Isovue injected. We injected with a retrograde positioning, which allowed spread of the dye towards the lower lumbar area. Dye spread was appropriate. After negative aspiration for heme, 5 mL of a solution containing 2 mL 40 mg per mL, 80 mg total triamcinolone along with 3 mL of 1% lidocaine injected slowly. Needle retracted half-way, flushed with 1 mL of 1% lidocaine, and removed. Sterile bandage placed over injection site. No new motor deficits present in lower extremity following procedure. The patient tolerated the procedure well, carefully escorted to recovery room in stable condition. No apparent complications. After meeting discharge criteria, the patient discharged home. <ELECTRONICALLY SIGNED> By: Tom Patino DO 03/20/21 [id number] Tom Patino DO /nt
== END | disposition home or self-care (01) ==
LOC: PAIN 07:52
PROVIDERS: ATTEND Anesthesiology Pain Medicine
DX: M47.27 Other spondylosis with radiculopathy, lumbosacral region (principal); M48.061 Spinal stenosis, lumbar region without neurogenic claudication; G89.29 Other chronic pain; M96.1 Postlaminectomy syndrome, not elsewhere classified; I10 Essential (primary) hypertension; M19.90 Unspecified osteoarthritis, unspecified site; F17.210 Nicotine dependence, cigarettes, uncomplicated; Z98.890 Other specified postprocedural states; Z79.899 Other long term (current) drug therapy

== ENCOUNTER → 2021-04-05 | Emergency (ER) | payer OTHER ==
[~2021-04-05] VITALS: Ht 160 cm; Wt 91.6 kg
[~2021-04-05] MED LIST changes: +CLONIDINE HCL0.3 M3 PO; +HYDRALAZINE 2525 M1 PO
[2021-04-05 21:12] VITALS: BP 198/121
== END ==
LOC: ER 19:20
DX: S01.411A Laceration without foreign body of right cheek and temporomandibular area, initial encounter (principal); S81.012A Laceration without foreign body, left knee, initial encounter; F17.210 Nicotine dependence, cigarettes, uncomplicated; Z91.013 Allergy to seafood; Z79.899 Other long term (current) drug therapy; Z96.653 Presence of artificial knee joint, bilateral; W01.0XXA Fall on same level from slipping, tripping and stumbling without subsequent striking against object, initial encounter; Y93.89 Activity, other specified; Y92.89 Other specified places as the place of occurrence of the external cause; Y99.9 Unspecified external cause status